=== PATIENT | male | born 1995 | race Caucasian/White ===

== ENCOUNTER 2020-12-11 07:08 | Emergency (ER) | payer OTHER ==
[~2020-12-11] VITALS: Ht 172.7 cm; Wt 77.1 kg
[2020-12-11] MEDS ORDERED: LEXAPRO20 MG (07:19)
[2020-12-11] MEDS ORDERED: SEROQUEL300 MG (07:19)
== END 2020-12-11 16:29 | disposition home or self-care (01) ==
LOC: ER 07:08
DX: K52.9 Noninfective gastroenteritis and colitis, unspecified (principal); R51.9 Headache, unspecified